=== PATIENT | female | born 1950 | race Caucasian/White ===

== ENCOUNTER 2016-11-23 10:48 | Day surgery (SDC) | payer MEDICARE, OTHER ==
[2016-11-19 15:59] VITALS: BMI 25.7
[~2016-11-23 10:48] MED LIST: LACTATED RINGERS 1,000 ML IV SCH
[2016-11-23] MEDS ORDERED: LIDOCAINE 1% 20 ML VIAL (10MG/ML) FOR IV START INTRADERMA ONE (10:58)
[2016-11-23 11:04] VITALS: RESP 16; TEMP 98.1
[2016-11-23] MEDS ORDERED: PROPOFOL 10 MG/ML 20 ML VIAL IV ONE (12:52)
[2016-11-23] MEDS ORDERED: LIDOCAINE 1% INJ 10MG/ML (20 ML MDV) ONE (12:52)
--- NOTE | 2016-11-23 13:25 | P.PCN ---
Date of Procedure: 11/23/16 Procedure(s) Performed: Procedure: Total colonoscopy. Preoperative diagnosis: Screening for neoplasia. Postoperative diagnosis: Sigmoid diverticulosis with no evidence of acute diverticulitis, strictures, polyps or cancer. Preparation: HalfLytely prep. Sedation: Was provided by anesthesia. Brief clinical history: The patient is a 66-year-old female who is scheduled for this evaluation for screening for neoplasia, age being her risk factor. She had a prior colonoscopy more than 10 years ago. She has no abdominal complaints, bleeding or anemia. Procedure: With the patient on her left lateral decubitus position and after informed consent and adequate sedation, the perianal area was inspected and it did not show any fissures or fistulas. There were no masses felt on digital rectal examination. The Olympus CFQ 160L video colonoscope was then inserted in the rectum in the usual fashion and advanced to the cecum. There were multiple diverticular orifices seen scattered in the sigmoid but there was no evidence of acute diverticulitis or strictures. No polyps or tumors were seen. I retroflexed the endoscope in the rectum before the endoscope was withdrawn. The patient tolerated the procedure well. Plan: The patient was reassured and I discussed with her as well. Discussed dietary measures. Consideration can be given for a repeat exam in 10 years depending on her overall health at that time. She will be discussing that with you and I will be happy to see her in the future.
[2016-11-23 13:46] VITALS: BP 127/61; PULSE 62
== END 2016-11-23 13:55 | disposition home or self-care (01) ==
LOC: ORWHC2ENDO 10:48
DX: Z12.11 Encounter for screening for malignant neoplasm of colon (principal); K57.30 Diverticulosis of large intestine without perforation or abscess without bleeding; I10 Essential (primary) hypertension; J45.909 Unspecified asthma, uncomplicated; F32.9 Major depressive disorder, single episode, unspecified; K21.9 Gastro-esophageal reflux disease without esophagitis; Z79.899 Other long term (current) drug therapy; Z88.5 Allergy status to narcotic agent; Z88.2 Allergy status to sulfonamides
CPT/HCPCS: J2001; J2704; G0121

== ENCOUNTER → 2016-11-25 | Outpatient (CLI) | payer MEDICARE, OTHER ==
--- NOTE | 2016-11-25 16:16 | BD ---
EXAMINATION TYPE: MG DEXA axial skeleton. DATE OF EXAM: 11/25/2016 COMPARISON: 2011 CLINICAL HISTORY: osteoporosis Height: 5'2 Weight: 150 FRAX RISK QUESTIONS: Alcohol (3 or more units per day): no Family History (Parent hip fracture): no Glucocorticoids (More than 3mos): no (Ex: prednisone, prednisolone, methylprednisolone, dexamethasone, and hydrocortisone). History of Fracture in Adulthood: yes Secondary Osteoporosis: 1. Type 1 Diabetes: no 2. Hyperthyroidism: no 3. Menopause before 45: yes 4. Malnutrition: no 5. Chronic liver disease: no Rheumatoid Arthritis: no Current Tobacco Use: no RISK FACTORS HISTORY OF: Postmenopausal woman: MEDICATIONS: Additional Medications: asthma, blood pressure, Additional History: EXAM MEASUREMENTS: Bone mineral densitometry was performed using the Mir [employer]en System. Bone mineral density as measured about the Lumbar spine is: ----- L1-L4(G/cm2): 1.247 T Score Values are as follows: ----- L2: -1.2 ----- L3: 2.0 ----- L4: 3.2 ----- L1-L4:0.6 Bone mineral density has: Decreased -16.1% since study of: 11/10/2011 Bone mineral density about the R hip (g/cm2): 0.869 Bone mineral density about the L hip (g/cm2): 0.903 T Score values are as follows: -----R Neck: -1.2 -----L Neck: -1.0 -----R Total: -0.6 -----L Total: -0.5 Bone mineral density has: Decreased -7.8% since study of: 11/09/2016 IMPRESSION: Osteopenia (T Score between -2.5 and -1) as noted by T score values:Rt hip There is slightly increased risk of fracture and the patient may be considered for treatment. Re-Screen 2-5 years. NOTE: T-SCORE=SD OF THE YOUNG ADULT MEAN.
--- NOTE | 2016-11-26 10:20 | MM ---
Reason for exam: screening (asymptomatic). Last mammogram was performed 1 year ago. History: Patient is postmenopausal. Family history of breast cancer in paternal grandmother and breast cancer in maternal aunt. Reductions of both breasts, May 2007. Benign stereotactic core biopsy of the left breast, June 08, 2002. Benign excisional biopsy of the left breast, 2002. Benign core biopsy of the left breast. Took estrogen for 12 years 2 months. Physical Findings: A clinical breast exam by your physician is recommended on an annual basis and results should be correlated with mammographic findings. MG Screening Mammo w CAD Bilateral CC and MLO view(s) were taken. Prior study comparison: November 20, 2015, bilateral MG screening mammo w CAD. November 21, 2014, bilateral MG screening mammo w CAD. November 15, 2013, bilateral MG screening mammo w CAD. There are scattered fibroglandular densities. Post mammoplasty changes on both sides. ASSESSMENT: Negative, BI-RAD 1 RECOMMENDATION: Routine screening mammogram of both breasts in 1 year.
== END | disposition home or self-care (01) ==
LOC: RADMAMWWP 14:12
PROVIDERS: ATTEND Family Medicine
DX: Z12.31 Encounter for screening mammogram for malignant neoplasm of breast (principal); M85.851 Other specified disorders of bone density and structure, right thigh
CPT/HCPCS: 77080; G0202

== ENCOUNTER → 2017-11-26 | Outpatient (CLI) | payer MEDICARE, OTHER ==
--- NOTE | 2017-11-29 10:17 | MM ---
Reason for exam: screening (asymptomatic). Last mammogram was performed 1 year ago. History: Patient is postmenopausal. Family history of breast cancer in paternal grandmother and breast cancer in maternal aunt. Reductions of both breasts, May 2007. Benign stereotactic core biopsy of the left breast, June 08, 2002. Benign excisional biopsy of the left breast, 2002. Benign core biopsy of the left breast. Took estrogen for 12 years 2 months. Physical Findings: A clinical breast exam by your physician is recommended on an annual basis and results should be correlated with mammographic findings. MG 3D Screening Mammo W/Cad Bilateral CC and MLO view(s) were taken. Prior study comparison: November 25, 2016, bilateral MG screening mammo w CAD. November 20, 2015, bilateral MG screening mammo w CAD. There are scattered fibroglandular densities. Previous mammotome biopsy in the left breast. No significant changes when compared with prior studies. ASSESSMENT: Benign, BI-RAD 2 RECOMMENDATION: Routine screening mammogram of both breasts in 1 year.
== END | disposition home or self-care (01) ==
LOC: RADMAMWWP 09:55
PROVIDERS: ATTEND Family Medicine
DX: Z12.31 Encounter for screening mammogram for malignant neoplasm of breast (principal)
CPT/HCPCS: 77063; 77067

== ENCOUNTER → 2018-03-18 | Outpatient (CLI) | payer MEDICARE, OTHER ==
[2018-03-18 22:34] LABS: Vitamin D 25 Hydroxy 66.6 ng/mL (30.0-100.0)
[2018-03-18 22:44] LABS: T4, Free (Free Thyroxine) 1.5 ng/dL (0.80-1.80)
== END ==
LOC: LABWHC1 15:24
PROVIDERS: ATTEND Psychiatry & Neurology Neurology
DX: E03.9 Hypothyroidism, unspecified (principal); E55.9 Vitamin D deficiency, unspecified; E53.0 Riboflavin deficiency; R53.83 Other fatigue
CPT/HCPCS: 36415; 82306; 82607; 84439; 84443

== ENCOUNTER 2019-11-01 10:46 | Observation (INO) | payer MEDICARE, OTHER ==
[2019-11-01 11:35] LABS: Basophils # (A) 0.1 k/uL (0-0.2); Basophils % (A) 1 %; Eosinophils # (A) 0.2 k/uL (0-0.7); Eosinophils % (A) 2 %; HCT 44.1 % (34.0-46.0); HGB 14.2 gm/dL (11.4-16.0); Lymphocytes # (A) 1.2 k/uL (1.0-4.8); Lymphocytes % (A) 19 %; MCH 28.8 pg (25.0-35.0); MCHC 32.3 g/dL (31.0-37.0); MCV 89.3 fL (80.0-100.0); Mean Platelet Volume 6.9; Monocytes # (A) 0.4 k/uL (0-1.0); Monocytes % (A) 6 %; Neutrophils # (A) 4.5 k/uL (1.3-7.7); Neutrophils % (A) 70 %; Platelet Count 244 k/uL (150-450); RBC 4.94 m/uL (3.80-5.40); RDW 13.2 % (11.5-15.5); WBC 6.4 k/uL (3.8-10.6)
--- NOTE | 2019-11-01 11:36 | XR ---
EXAMINATION TYPE: XR chest 2V DATE OF EXAM: 11/01/2019 COMPARISON: 06/24/2017 TECHNIQUE: PA and lateral views submitted. HISTORY: Shortness of breath FINDINGS: The lungs are clear and there is no pneumothorax, pleural effusion, or focal pneumonia. No overt fa ilure. 2 mm nodule right upper lobe too small to characterize. Arthropathy of the shoulders. Heart si ze normal. Degenerative change of the spine. IMPRESSION: 1. No acute process.
[2019-11-01 11:51] LABS: ALT 11 U/L (4-34); AST 24 U/L (14-36); African American GFR (CKD) >90 (>60 ml/min/1.73 sqM); Alkaline Phosphatase 100 U/L (38-126); Anion Gap 7 mmol/L; Blood Urea Nitrogen 9 mg/dL (7-17); Calcium 9.8 mg/dL (8.4-10.2); Carbon Dioxide 25 mmol/L (22-30); Chloride 103 mmol/L (98-107); D-Dimer 0.4 mg/L FEU (<0.60); Glucose 97 mg/dL (74-99); INR 0.9 (<1.2); Magnesium 2.1 mg/dL (1.6-2.3); Non-African American GFR(CKD) 80 (>60 ml/min/1.73 sqM); Partial Thromboplastin Time 23.6 sec (22.0-30.0); Potassium 4.2 mmol/L (3.5-5.1); Prothrombin Time 9.7 sec (9.0-12.0); Sodium 135 mmol/L (137-145); Total Bilirubin 0.6 mg/dL (0.2-1.3); Total Protein 6.5 g/dL (6.3-8.2)
--- NOTE | 2019-11-01 12:06 | ED ---
General Adult HPI - General Chief complaint: Shortness of Breath Stated complaint: LUIS Time Seen by Provider: 11/01/19 10:56 Source: patient, RN notes reviewed Mode of arrival: ambulatory Limitations: no limitations - History of Present Illness Initial comments: 68-year-old female presents emergency from chief complaint chest pain or shortness of breath. Patient had increased symptoms the last couple days with today's a worse. Patient states that she does have history of asthma does see Dr. Dudley. Patient states that the pain is not exacerbated with movement. Patient states she does have increased shortness breath with exertion. Patient states that she has no prior cardiac disease. She is to have a history of hypertension but states that she lost weight and states that she was off medication. Patient states she has no leg swelling, leg pain no history of PE or DVT. - Related Data Home Medications Medication Instructions Recorded Confirmed Escitalopram [Lexapro] 20 mg PO DAILY 08/18/13 11/23/16 Ibuprofen [Motrin] 600 mg PO DAILY 08/18/13 11/23/16 Valsartan/Hydrochlorothiazide 1 each PO DAILY 08/18/13 11/23/16 [Diovan Hct 80-12.5 mg Tablet] Cholecalciferol (Vitamin D3) 2,000 unit PO DAILY 11/19/16 11/23/16 [Vitamin D3] Fluticasone/Salmeterol [Advair 1 inhalation PO BID 11/19/16 11/23/16 500-50 Diskus] Glucosam/Miguel-Msm1/C/Wilver/Bosw 1 each PO DAILY 11/19/16 11/23/16 [Glucosamine-Chondroitin Tablet] Losartan-Hctz 50-12.5 mg [Hyzaar 1 each PO DAILY 11/19/16 11/23/16 50-12.5] Montelukast [Singulair] 10 mg PO DAILY 11/19/16 11/23/16 Multivitamins, Thera [Multivitamin 1 tab PO DAILY 11/19/16 11/23/16 (formulary)] Pantoprazole [Protonix] 0 mg PO DAILY 11/19/16 11/23/16 Vitamin B Complex 1 each PO DAILY 11/19/16 11/23/16 Allergies Allergy/AdvReac Type Severity Reaction Status Date / Time acetaminophen [From Vicodin] AdvReac Nausea & Verified 11/23/16 10:55 Vomiting hydrocodone [From Vicodin] AdvReac Nausea & Verified 11/23/16 10:55 Vomiting hydromorphone [From Dilaudid] AdvReac Nausea & Verified 11/23/16 10:55 Vomiting meperidine [From Demerol] AdvReac Nausea & Verified 11/23/16 10:55 Vomiting morphine AdvReac Nausea & Verified 11/23/16 10:55 Vomiting oxycodone AdvReac Nausea & Verified 11/23/16 10:55 Vomiting Sulfa (Sulfonamide AdvReac Nausea & Verified 11/23/16 10:55 Antibiotics) Vomiting Review of Systems ROS Statement: Those systems with pertinent positive or pertinent negative responses have been documented in the HPI. ROS Other: All systems not noted in ROS Statement are negative. Past Medical History Past Medical History: Asthma, GERD/Reflux, Hypertension Additional Past Medical History / Comment(s): hx of migraines; History of Any Multi-Drug Resistant Organisms: None Reported Past Surgical History: Appendectomy, Breast Surgery, Cholecystectomy, Hysterectomy, Joint Replacement Additional Past Surgical History / Comment(s): bowen knee replacments, polyps removed from esophagus, bowen breast reduction; colonoscopy Past Anesthesia/Blood Transfusion Reactions: Motion Sickness Additional Past Anesthesia/Blood Transfusion Reaction / Comment(s): pt states had diff "catching my breath" during procedure when tube passed down esophagus Smoking Status: Never smoker Past Alcohol Use History: None Reported Past Drug Use History: None Reported - Past Family History Mother Family Medical History: No Reported History General Exam Limitations: no limitations General appearance: alert, in no apparent distress Head exam: Present: atraumatic, normocephalic, normal inspection Neck exam: Present: normal inspection, full ROM. Absent: tenderness, meningismus, lymphadenopathy Respiratory exam: Present: normal lung sounds bilaterally. Absent: respiratory distress, wheezes, rales, rhonchi, stridor Cardiovascular Exam: Present: regular rate, normal rhythm, normal heart sounds. Absent: systolic murmur, diastolic murmur, rubs, gallop, clicks GI/Abdominal exam: Present: soft, normal bowel sounds. Absent: distended, tenderness, guarding, rebound, rigid Back exam: Absent: CVA tenderness (R), CVA tenderness (L) Neurological exam: Present: alert, oriented X3 Skin exam: Present: warm, dry, intact, normal color. Absent: rash Course Vital Signs 11/01/19 11/01/19 10:52 12:23 Temperature 98.5 F Pulse Rate 73 68 Respiratory 18 18 Rate Blood Pressure 145/81 134/63 O2 Sat by Pulse 99 100 Oximetry EKG Findings - EKG Comments: EKG Findings:: EKG performed at 11:04 normal sinus rhythm rate of 67 AR 180 QRS 96 QTC is QTC 410/433 Medical Decision Making - Medical Decision Making 68-year-old female sent for chest pain shortness breath EKG, chest x-ray, d- dimer and troponin are negative this time. Patient we admitted for cardiac rule out. - Lab Data Result diagrams: 11/01/19 11:15 11/01/19 11:15 Lab Results 11/01/19 11/01/19 11/01/19 Range/Units 11:15 11:15 11:15 WBC 6.4 (3.8-10.6) k/uL RBC 4.94 (3.80-5.40) m/uL Hgb 14.2 (11.4-16.0) gm/dL Hct 44.1 (34.0-46.0) % MCV 89.3 (80.0-100.0) fL MCH 28.8 (25.0-35.0) pg MCHC 32.3 (31.0-37.0) g/dL RDW 13.2 (11.5-15.5) % Plt Count 244 (150-450) k/uL Neutrophils % 70 % Lymphocytes % 19 % Monocytes % 6 % Eosinophils % 2 % Basophils % 1 % Neutrophils # 4.5 (1.3-7.7) k/uL Lymphocytes # 1.2 (1.0-4.8) k/uL Monocytes # 0.4 (0-1.0) k/uL Eosinophils # 0.2 (0-0.7) k/uL Basophils # 0.1 (0-0.2) k/uL PT 9.7 (9.0-12.0) sec INR 0.9 (<1.2) APTT 23.6 (22.0-30.0) sec D-Dimer 0.40 (<0.60) mg/L FEU Sodium 135 L (137-145) mmol/L Potassium 4.2 (3.5-5.1) mmol/L Chloride 103 (98-107) mmol/L Carbon Dioxide 25 (22-30) mmol/L Anion Gap 7 mmol/L BUN 9 (7-17) mg/dL Creatinine 0.76 (0.52-1.04) mg/dL Est GFR (CKD-EPI)AfAm >90 (>60 ml/min/1.73 sqM) Est GFR (CKD-EPI)NonAf 80 (>60 ml/min/1.73 sqM) Glucose 97 (74-99) mg/dL Plasma Lactic Acid Marcos (0.7-2.0) mmol/L Calcium 9.8 (8.4-10.2) mg/dL Magnesium 2.1 (1.6-2.3) mg/dL Total Bilirubin 0.6 (0.2-1.3) mg/dL AST 24 (14-36) U/L ALT 11 (4-34) U/L Alkaline Phosphatase 100 (38-126) U/L Troponin I (0.000-0.034) ng/mL NT-Pro-B Natriuret Pep pg/mL Total Protein 6.5 (6.3-8.2) g/dL Albumin 4.0 (3.5-5.0) g/dL 11/01/19 11/01/19 11/01/19 Range/Units 11:15 11:15 11:37 WBC (3.8-10.6) k/uL RBC (3.80-5.40) m/uL Hgb (11.4-16.0) gm/dL Hct (34.0-46.0) % MCV (80.0-100.0) fL MCH (25.0-35.0) pg MCHC (31.0-37.0) g/dL RDW (11.5-15.5) % Plt Count (150-450) k/uL Neutrophils % % Lymphocytes % % Monocytes % % Eosinophils % % Basophils % % Neutrophils # (1.3-7.7) k/uL Lymphocytes # (1.0-4.8) k/uL Monocytes # (0-1.0) k/uL Eosinophils # (0-0.7) k/uL Basophils # (0-0.2) k/uL PT (9.0-12.0) sec INR (<1.2) APTT (22.0-30.0) sec D-Dimer (<0.60) mg/L FEU Sodium (137-145) mmol/L Potassium (3.5-5.1) mmol/L Chloride (98-107) mmol/L Carbon Dioxide (22-30) mmol/L Anion Gap mmol/L BUN (7-17) mg/dL Creatinine (0.52-1.04) mg/dL Est GFR (CKD-EPI)AfAm (>60 ml/min/1.73 sqM) Est GFR (CKD-EPI)NonAf (>60 ml/min/1.73 sqM) Glucose (74-99) mg/dL Plasma Lactic Acid Marcos 1.5 (0.7-2.0) mmol/L Calcium (8.4-10.2) mg/dL Magnesium (1.6-2.3) mg/dL Total Bilirubin (0.2-1.3) mg/dL AST (14-36) U/L ALT (4-34) U/L Alkaline Phosphatase (38-126) U/L Troponin I <0.012 (0.000-0.034) ng/mL NT-Pro-B Natriuret Pep 163 pg/mL Total Protein (6.3-8.2) g/dL Albumin (3.5-5.0) g/dL Disposition Clinical Impression: Chest pain, Dyspnea Disposition: ADMITTED IP TO THIS HOSP Condition: Fair Referrals: Kristina Zapata MD [Primary Care Provider] - 1-2 days
[2019-11-01] MEDS ORDERED: HEPARIN SODIUM,PORCINE 5,000 UNIT/ML 1 ML VIAL IV ONE (12:32)
[2019-11-01] MEDS ORDERED: NITROGLYCERIN SL TABS 0.4 MG TAB SUBLINGUAL PRN (12:32)
[2019-11-01] MEDS ORDERED: HEPARIN SODIUM,PORCINE 5,000 UNIT/ML 1 ML VIAL IV PRN (12:32)
[2019-11-01] MEDS ORDERED: ASPIRIN 81 MG PO STA (12:32)
[2019-11-01] MEDS ORDERED: HEPARIN SOD,PORK IN 0.45% NACL 25,000 UNIT in 0.45% NACL 1 250ML.BAG IV SCH (12:45)
[2019-11-01] MEDS ORDERED: ALBUTEROL NEBULIZED (CONC) 5 MG, SODIUM CHLORIDE 0.9% NEBULIZ 3 ML INHALATION PRN ×2 (14:30)
[2019-11-01] MEDS ORDERED: MELATONIN PO PRN (15:31)
--- NOTE | 2019-11-01 15:36 | P.HPIM ---
History of Present Illness Patient given with complaints of her shortness of breath patient does have history of asthma and she believes that she may have asthma exacerbation patient has is having shortness of breath going on for about a week and getting worse progressively. On exam patient doesn't have any wheeze. Patient is also complaining of epigastric abdominal discomfort which is burning sensation did have an episode of nausea vomiting patient denied any lightheadedness denied any dysuria patient denied any palpitations or diaphoresis or this epigastric pain patient is admitted for rule out acute coronary syndromes. EKG did not show any acute ST-T wave changes. Patient was also having dry cough. Review of Systems REVIEW OF SYSTEMS: CONSTITUTIONAL: No fever, no malaise, no fatigue. HEENT: No recent visual problems or hearing problems. Denied any sore throat. CARDIOVASCULAR: No chest pain, orthopnea, PND, no palpitations, no syncope. PULMONARY: no hemoptysis. GASTROINTESTINAL: No diarrhea, no nausea, no vomiting, no abdominal pain. NEUROLOGICAL: No headaches, no weakness, no numbness. HEMATOLOGICAL: Denies any bleeding or petechiae. GENITOURINARY: Denies any burning micturition, frequency, or urgency. MUSCULOSKELETAL/RHEUMATOLOGICAL: Denies any joint pain, swelling, or any muscle pain. ENDOCRINE: Denies any polyuria or polydipsia. The rest of the 14-point review of systems is negative. Past Medical History Past Medical History: Asthma, Chest Pain / Angina, GERD/Reflux, Hypertension Additional Past Medical History / Comment(s): hx of migraines; History of Any Multi-Drug Resistant Organisms: None Reported Past Surgical History: Appendectomy, Breast Surgery, Cholecystectomy, Hysterectomy, Joint Replacement Additional Past Surgical History / Comment(s): bowen knee replacments, polyps removed from esophagus, bowen breast reduction; colonoscopy. esophagus repair Past Anesthesia/Blood Transfusion Reactions: Motion Sickness Additional Past Anesthesia/Blood Transfusion Reaction / Comment(s): pt states had diff "catching my breath" during procedure when tube passed down esophagus Additional Psychological History / Comment(s): mild memory loss, dementia, alzheimers. Smoking Status: Never smoker Past Alcohol Use History: None Reported Additional Past Alcohol Use History / Comment(s): smoked socially off and on; quit 25 years ago Past Drug Use History: None Reported - Past Family History Mother Family Medical History: No Reported History Medications and Allergies Home Medications Medication Instructions Recorded Confirmed Type Fluticasone/Salmeterol [Advair 1 puff INHALATION RT-BID PRN 11/19/16 11/01/19 History 500-50 Diskus] Ascorbic Acid [Vitamin C] 500 mg PO TID 11/01/19 11/01/19 History Citalopram Hydrobromide 10 mg PO HS 11/01/19 11/01/19 History [Citalopram HBr] Donepezil HCl [Aricept] 10 mg PO HS 11/01/19 11/01/19 History Fexofenadine HCl [Shoshana Allergy] 180 mg PO DAILY 11/01/19 11/01/19 History Gabapentin [Neurontin] 100 mg PO TID 11/01/19 11/01/19 History Ginkgo Biloba Vanlue Extract [Ginkgo] 120 mg PO BID 11/01/19 11/01/19 History L.acidoph,Paracasei, B.lactis 1 cap PO DAILY 11/01/19 11/01/19 History [Probiotic] Magnesium Oxide [Mag-Ox] 400 mg PO HS 11/01/19 11/01/19 History Melatonin (Unknown Dose) 1 tab PO HS 11/01/19 11/01/19 History Memantine HCl 10 mg PO BID 11/01/19 11/01/19 History Prevagen 1 tab PO HS 11/01/19 11/01/19 History Valsartan [Diovan] 80 mg PO DAILY 11/01/19 11/01/19 History miSOPROStoL [Cytotec] 100 mcg PO BID 11/01/19 11/01/19 History Allergies Allergy/AdvReac Type Severity Reaction Status Date / Time acetaminophen [From Vicodin] AdvReac Nausea & Verified 11/01/19 12:57 Vomiting hydrocodone [From Vicodin] AdvReac Nausea & Verified 11/01/19 12:57 Vomiting hydromorphone [From Dilaudid] AdvReac Nausea & Verified 11/01/19 12:57 Vomiting meperidine [From Demerol] AdvReac Nausea & Verified 11/01/19 12:57 Vomiting morphine AdvReac Nausea & Verified 11/01/19 12:57 Vomiting oxycodone AdvReac Nausea & Verified 11/01/19 12:57 Vomiting Sulfa (Sulfonamide AdvReac Nausea & Verified 11/01/19 12:57 Antibiotics) Vomiting Physical Exam Vitals: Vital Signs Temp Pulse Pulse Resp BP BP Pulse Ox 11/01/19 13:56 97.9 F 74 16 136/77 99 11/01/19 12:23 68 18 134/63 100 11/01/19 10:52 98.5 F 73 18 145/81 99 Intake and Output 11/01/19 11/01/19 11/01/19 06:59 14:59 22:59 Intake Total 114 Balance 114 Intake: IV 14 Heparin Sod,Pork in 0.45% 14 NaCl 25,000 unit In 0.45 % NaCl 1 250ml.bag @ 12 UNITS/KG/HR 7.762 mls/hr IV .Q24H [facility] Rx#: [id number] Oral 100 Other: Weight 64.682 kg PHYSICAL EXAMINATION: GENERAL: The patient is alert and oriented x3, not in any acute distress. Well developed, well nourished. HEENT: Pupils are round and equally reacting to light. EOMI. No scleral icterus. No conjunctival pallor. Normocephalic, atraumatic. No pharyngeal erythema. No thyromegaly. CARDIOVASCULAR: S1 and S2 present. No murmurs, rubs, or gallops. PULMONARY: Chest is clear to auscultation, no wheezing or crackles. ABDOMEN: Soft, nontender, nondistended, normoactive bowel sounds. No palpable organomegaly. MUSCULOSKELETAL: No joint swelling or deformity. EXTREMITIES: No cyanosis, clubbing, or pedal edema. NEUROLOGICAL: Gross neurological examination did not reveal any focal deficits. SKIN: No rashes. Results CBC & Chem 7: 11/01/19 11:15 11/01/19 11:15 Labs: Abnormal Lab Results - Last 24 Hours (Table) 11/01/19 Range/Units 11:15 Sodium 135 L (137-145) mmol/L Thrombosis Risk Factor Assmnt - Choose All That Apply Any of the Below Risk Factors Present?: No Other Risk Factors: Yes (chest pain) Each Risk Factor Represents 2 Points: Age 61-74 years Other congenital or acquired thrombophilia - If yes, enter type in comment: No Thrombosis Risk Factor Assessment Total Risk Factor Score: 2 Thrombosis Risk Factor Assessment Level: Low Risk Assessment and Plan Plan: -Chest pain patient pain is mostly in the epigastric area possibly peptic ulcer disease or gastritis patient will be started on Protonix rule out a concurrent syndromes cardiology will evaluate the patient further management as per them -Shortness of breath patient may have mild asthma exacerbation will not require any systemic steroids patient will be started on inhaled steroids. -Hypertension -Mild dementia for which patient is on memantine and Aricept which will be continued
[2019-11-01] MEDS: PANTOPRAZOLE 40 MG/10 ML VIAL IVP SCH (16:02)
[2019-11-01] MEDS: GABAPENTIN 100 MG CAP PO SCH ×2 (16:02→20:33)
[2019-11-01] MEDS: SYMBICORT 160-4.5 MCG INHALER INHALATION SCH (19:27)
[2019-11-01] MEDS ORDERED: BUDESONIDE 0.5 MG/2 ML NEBU INHALATION SCH (20:00)
[2019-11-01] MEDS: miSOPROStoL 100 MCG TAB PO SCH (20:33)
[2019-11-01] MEDS: MEMANTINE 10 MG TAB PO SCH (20:33)
[2019-11-01] MEDS ORDERED: CITALOPRAM HYDROBROMIDE 10 MG TAB PO SCH (21:00)
[2019-11-01] MEDS ORDERED: DONEPEZIL 10 MG TAB PO SCH (21:00)
[2019-11-01] MEDS ORDERED: MAGNESIUM OXIDE 400 MG TAB PO SCH (21:00)
[2019-11-01] MEDS ORDERED: NON FORMULARY DRUG (Prevagen 1 TAB) PO SCH (21:00)
[2019-11-01] MEDS ORDERED: QUEtiapine 25 MG TAB PO SCH (23:15)
[2019-11-02 02:14] VITALS: RESP 16
[2019-11-02 02:46] LABS: Mean Platelet Volume 7.3; Platelet Count 181 k/uL (150-450)
[2019-11-02 03:03] LABS: Cholesterol 154 mg/dL (<200); Triglycerides 97 mg/dL (<150)
[2019-11-02 05:54] LABS: HDL Cholesterol 70 mg/dL (40-60); LDL Cholesterol,Calculated 65 mg/dL (0-99)
[2019-11-02] MEDS: SYMBICORT 160-4.5 MCG INHALER INHALATION SCH (07:51)
[2019-11-02 08:24] VITALS: BP 157/80; PULSE 76; TEMP 98.1
[2019-11-02] MEDS: MEMANTINE 10 MG TAB PO SCH (08:54)
[2019-11-02] MEDS: GABAPENTIN 100 MG CAP PO SCH (08:54)
[2019-11-02] MEDS: PANTOPRAZOLE 40 MG/10 ML VIAL IVP SCH (08:55)
[2019-11-02] MEDS: miSOPROStoL 100 MCG TAB PO SCH (08:57)
[2019-11-02] MEDS ORDERED: VALSARTAN 80 MG TAB PO SCH (09:00)
[2019-11-02] MEDS ORDERED: LORATADINE 10 MG TAB PO SCH (09:00)
[2019-11-02] MEDS ORDERED: ASPIRIN 325 MG TAB PO SCH (09:00)
--- NOTE | 2019-11-02 10:13 | P.CRDCN ---
History of Present Illness History of present illness: HISTORY OF PRESENTING ILLNESS This is a pleasant 68-year-old occasion female past medical history significant for asthma, hypertension, gastroesophageal reflux disease and Alzheimer's. 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 The patient is confused at baseline and is unsure why she is in the hospital. She is unsure of the day. She is very confused as to the circumstances surrounding yesterday. Information is obtained from the medical records and her . According to her he brought her to the emergency department yesterday with symptoms of shortness of breath. She had been complaining of feeling short of breath for the previous 1-week that seemed like her asthma, however it was getting progressively worse. She did not have chest pain according tot he patient and her . She states she has been struggling with diarrhea. DIAGNOSTICS EKG reveals sinus mechanism with left axis deviation and poor R-wave progression. Chest xray negative for an acute cardiopulmonary process. Laboratory reviewed, CBC unremarkable, cardiac enzymes negative x3, LDL 65, HDL 70, d-dimer 0.4, sodium 135, potassium 4.2, creatinine 0.76 and magnesium 2.1. Current cardiac medications include valsartan 80 mg daily. REVIEW OF SYSTEMS At the time of my exam: CONSTITUTIONAL: Denies fever or chills. CARDIOVASCULAR: Denies chest pain, shortness of breath, orthopnea, PND or palpitations. RESPIRATORY: Denies cough. GASTROINTESTINAL: Denies abdominal pain, diarrhea, constipation, nausea or vomiting. MUSCULOSKELETAL: Denies myalgias. NEUROLOGIC: Denies numbness, tingling or weakness. ENDOCRINE: Denies fatigue, weight change, polydipsia or polyurina. GENITOURINARY: Denies burning, hematuria or urgency with micturation. HEMATOLOGIC: Denies history of anemia or bleeding. PHYSICAL EXAMINATION Blood pressure 157/80 heart rate 76 afebrile and maintaining oxygen saturation on room air. CONSTITUTIONAL: No apparent distress. HEENT: Head is normocephalic. Pupils are equal, round. Sclerae anicteric. Mucous membranes of the mouth are moist. No JVD. No carotid bruit. CHEST EXAMINATION: Lungs are clear to auscultation. No chest wall tenderness is noted on palpation or with deep breathing. HEART EXAMINATION: Regular rate and rhythm. S1, S2 heard. No murmurs, gallops or rub. ABDOMEN: Soft, nontender. Positive bowel sounds. EXTREMITIES: 2+ peripheral pulses, no lower extremity edema and no calf tenderness. NEUROLOGIC EXAMINATION: Patient is awake, alert. ASSESSMENT Shortness of breath, and acute coronary event has been ruled out. Hypertension Asthma Altered mental status with history of Alzheimer's disease PLAN An acute coronary event has been ruled out. Clinically she is euvolemic and not in heart failure or fluid overload. Discontinue heparin infusion. Echocardiogram has been obtained and will be reviewed. Recommend increasing activity and ambulation and assess for exertional chest pain or shortness of breath. Further recommendations to follow based on clinical course. Thank you kindly for this consultation. Nurse Practitioner note has been reviewed, I agree with a documented findings and plan of care. Patient was seen and examined. Past Medical History Past Medical History: Asthma, Chest Pain / Angina, GERD/Reflux, Hypertension Additional Past Medical History / Comment(s): hx of migraines; History of Any Multi-Drug Resistant Organisms: None Reported Past Surgical History: Appendectomy, Breast Surgery, Cholecystectomy, Hysterectomy, Joint Replacement Additional Past Surgical History / Comment(s): bowen knee replacments, polyps removed from esophagus, bowen breast reduction; colonoscopy. esophagus repair Past Anesthesia/Blood Transfusion Reactions: Motion Sickness Additional Past Anesthesia/Blood Transfusion Reaction / Comment(s): pt states had diff "catching my breath" during procedure when tube passed down esophagus Additional Psychological History / Comment(s): mild memory loss, dementia, alzheimers. Smoking Status: Never smoker Past Alcohol Use History: None Reported Additional Past Alcohol Use History / Comment(s): smoked socially off and on; quit 25 years ago Past Drug Use History: None Reported - Past Family History Mother Family Medical History: No Reported History Medications and Allergies Home Medications Medication Instructions Recorded Confirmed Type Fluticasone/Salmeterol [Advair 1 puff INHALATION RT-BID PRN 11/19/16 11/01/19 History 500-50 Diskus] Ascorbic Acid [Vitamin C] 500 mg PO TID 11/01/19 11/01/19 History Citalopram Hydrobromide 10 mg PO HS 11/01/19 11/01/19 History [Citalopram HBr] Donepezil HCl [Aricept] 10 mg PO HS 11/01/19 11/01/19 History Fexofenadine HCl [Shoshana Allergy] 180 mg PO DAILY 11/01/19 11/01/19 History Gabapentin [Neurontin] 100 mg PO TID 11/01/19 11/01/19 History Ginkgo Biloba [place] Extract [Ginkgo] 120 mg PO BID 11/01/19 11/01/19 History L.acidoph,Paracasei, B.lactis 1 cap PO DAILY 11/01/19 11/01/19 History [Probiotic] Magnesium Oxide [Mag-Ox] 400 mg PO HS 11/01/19 11/01/19 History Melatonin (Unknown Dose) 1 tab PO HS 11/01/19 11/01/19 History Memantine HCl 10 mg PO BID 11/01/19 11/01/19 History Prevagen 1 tab PO HS 11/01/19 11/01/19 History Valsartan [Diovan] 80 mg PO DAILY 11/01/19 11/01/19 History miSOPROStoL [Cytotec] 100 mcg PO BID 11/01/19 11/01/19 History Allergies Allergy/AdvReac Type Severity Reaction Status Date / Time acetaminophen [From Vicodin] AdvReac Nausea & Verified 11/01/19 12:57 Vomiting hydrocodone [From Vicodin] AdvReac Nausea & Verified 11/01/19 12:57 Vomiting hydromorphone [From Dilaudid] AdvReac Nausea & Verified 11/01/19 12:57 Vomiting meperidine [From Demerol] AdvReac Nausea & Verified 11/01/19 12:57 Vomiting morphine AdvReac Nausea & Verified 11/01/19 12:57 Vomiting oxycodone AdvReac Nausea & Verified 11/01/19 12:57 Vomiting Sulfa (Sulfonamide AdvReac Nausea & Verified 11/01/19 12:57 Antibiotics) Vomiting Physical Exam Vitals: Vital Signs Temp Pulse Pulse Resp BP BP Pulse Ox 11/02/19 08:22 98.1 F 76 16 157/80 97 11/02/19 02:11 98.0 F 59 L 16 161/73 97 11/01/19 21:00 98.0 F 68 17 139/71 98 11/01/19 15:55 98.2 F 72 20 145/61 96 11/01/19 14:00 20 11/01/19 13:56 97.9 F 74 16 136/77 99 11/01/19 12:23 68 18 134/63 100 11/01/19 10:52 98.5 F 73 18 145/81 99 Intake and Output 11/01/19 11/02/19 11/02/19 22:59 06:59 14:59 Intake Total 413.897 61.123 Balance 413.897 61.123 Intake: IV 14 Heparin Sod,Pork in 0.45% 14 NaCl 25,000 unit In 0.45 % NaCl 1 250ml.bag @ 12 UNITS/KG/HR 7.762 mls/hr IV .Q24H [facility] Rx#: [id number] Intake, IV Titration 59.897 61.123 Amount Heparin Sod,Pork in 0.45% 59.897 61.123 NaCl 25,000 unit In 0.45 % NaCl 1 250ml.bag @ 12 UNITS/KG/HR 7.762 mls/hr IV .Q24H [facility] Rx#: [id number] Oral 340 Other: Voiding Method Toilet Toilet Toilet # Voids 1 1 Results 11/02/19 02:28 11/01/19 11:15 Cardiac Enzymes 11/01/19 11/01/19 11/01/19 Range/Units 11:15 11:15 14:36 AST 24 (14-36) U/L Troponin I <0.012 <0.012 (0.000-0.034) ng/mL 11/01/19 Range/Units 17:31 AST (14-36) U/L Troponin I <0.012 (0.000-0.034) ng/mL Coagulation 11/01/19 11/01/19 11/02/19 Range/Units 11:15 18:48 02:28 PT 9.7 (9.0-12.0) sec APTT 23.6 77.6 H 46.1 H (22.0-30.0) sec Lipids 11/02/19 Range/Units 02:28 Triglycerides 97 (<150) mg/dL Cholesterol 154 (<200) mg/dL HDL Cholesterol 70 H (40-60) mg/dL CBC 11/01/19 11/02/19 Range/Units 11:15 02:28 WBC 6.4 (3.8-10.6) k/uL RBC 4.94 (3.80-5.40) m/uL Hgb 14.2 (11.4-16.0) gm/dL Hct 44.1 (34.0-46.0) % Plt Count 244 181 (150-450) k/uL Comprehensive Metabolic Panel 11/01/19 Range/Units 11:15 Sodium 135 L (137-145) mmol/L Potassium 4.2 (3.5-5.1) mmol/L Chloride 103 (98-107) mmol/L Carbon Dioxide 25 (22-30) mmol/L BUN 9 (7-17) mg/dL Creatinine 0.76 (0.52-1.04) mg/dL Glucose 97 (74-99) mg/dL Calcium 9.8 (8.4-10.2) mg/dL AST 24 (14-36) U/L ALT 11 (4-34) U/L Alkaline Phosphatase 100 (38-126) U/L Total Protein 6.5 (6.3-8.2) g/dL Albumin 4.0 (3.5-5.0) g/dL Current Medications Generic Name Dose Route Start Last Admin Trade Name Freq PRN Reason Stop Dose Admin Aspirin 325 mg 11/02/19 09:00 11/02/19 08:54 Aspirin PO 325 mg DAILY [facility] Administration Budesonide/Formoterol Fumarate 2 puff 11/01/19 20:00 11/02/19 07:51 Symbicort 160-4.5 Mcg Inhaler INHALATION 2 puff RT-BID [facility] Administration Citalopram Hydrobromide 10 mg 11/01/19 21:00 11/01/19 20:32 Celexa PO 10 mg HS [facility] Administration Albuterol Sulfate 5 mg/ Sodium 0 mg 11/01/19 14:30 Chloride 3 ml INHALATION RT-QID PRN Shortness Of Breath Or Wheezing Donepezil HCl 10 mg 11/01/19 21:00 11/01/19 20:33 Aricept PO 10 mg HS [facility] Administration Gabapentin 100 mg 11/01/19 16:00 11/02/19 08:54 Neurontin PO 100 mg TID [facility] Administration Heparin Sodium (Porcine) 0 unit 11/01/19 12:32 Heparin IV Q6HR PRN Low PTT Protocol Loratadine 10 mg 11/02/19 09:00 11/02/19 08:54 Claritin PO 10 mg DAILY [facility] Administration Magnesium Oxide 400 mg 11/01/19 21:00 11/01/19 20:33 Mag-Ox PO 400 mg HS [facility] Administration Memantine 10 mg 11/01/19 21:00 11/02/19 08:54 Namenda PO 10 mg BID [facility] Administration Misoprostol 100 mcg 11/01/19 21:00 11/02/19 08:57 Cytotec PO 100 mcg BID [facility] Administration Nitroglycerin 0.4 mg 11/01/19 12:32 Nitrostat SUBLINGUAL Q5M PRN Chest Pain Non-Formulary Medication 1 tab 11/01/19 21:00 11/01/19 20:33 Prevagen PO Not Given HS [facility] Pantoprazole Sodium 40 mg 11/01/19 14:45 11/02/19 08:55 Protonix IVP 40 mg DAILY [facility] Administration Quetiapine Fumarate 25 mg 11/01/19 23:15 11/01/19 23:20 Seroquel PO 25 mg HS [facility] Administration Valsartan 80 mg 11/02/19 09:00 11/02/19 08:54 Diovan PO 80 mg DAILY [facility] Administration Intake and Output 11/01/19 11/02/19 11/02/19 22:59 06:59 14:59 Intake Total 413.897 61.123 Balance 413.897 61.123 Intake: IV 14 Heparin Sod,Pork in 0.45% 14 NaCl 25,000 unit In 0.45 % NaCl 1 250ml.bag @ 12 UNITS/KG/HR 7.762 mls/hr IV .Q24H [facility] Rx#: [id number] Intake, IV Titration 59.897 61.123 Amount Heparin Sod,Pork in 0.45% 59.897 61.123 NaCl 25,000 unit In 0.45 % NaCl 1 250ml.bag @ 12 UNITS/KG/HR 7.762 mls/hr IV .Q24H [facility] Rx#: [id number] Oral 340 Other: Voiding Method Toilet Toilet Toilet # Voids 1 1 11/02/19 02:28 11/01/19 11:15
--- NOTE | 2019-11-02 10:17 | ECHOF ---
Referral Reason:chest pain MEASUREMENTS -------- HEIGHT: 162.6 cm WEIGHT: 64.4 kg BP: 134/63 RVIDd: 3.2 cm (< 3.3) IVSd: 1.5 cm (0.6 - 1.1) LVIDd: 3.5 cm (3.9 - 5.3) LVPWd: 1.4 cm (0.6 - 1.1) IVSs: 1.7 cm LVIDs: 2.4 cm LVPWs: 1.5 cm LAESV Index (A-L): 29.30 ml/m Ao Diam: 2.3 cm (2.0 - 3.7) AV Cusp: 1.6 cm (1.5 - 2.6) MV EXCURSION: 20.180 mm (> 18.000) MV EF SLOPE: 84 mm/s (70 - 150) EPSS: 0.4 cm MV E Antwan: 0.56 m/s MV DecT: 232 ms MV A Antwan: 0.96 m/s MV E/A Ratio: 0.59 RAP: 5.00 mmHg RVSP: 26.63 mmHg FINDINGS -------- This was a technically adequate study. The left ventricular size is normal. There is moderate concentric left ventricular hypertrophy. O verall left ventricular systolic function is normal with, an EF between 55 - 60 %. The diastolic fi lling pattern is normal for the age of the patient {E/E'}. The right ventricle is normal in size. LA is midly dilated 29-33ml/m2. The right atrial size is normal. Interatrial and interventricular septum intact. The aortic valve is trileaflet and appears structurally normal. There is no evidence of aortic regu rgitation. There is no evidence of aortic stenosis. Mild mitral annular calcification present. Mild mitral regurgitation is present. Mild tricuspid regurgitation present. There is no evidence of pulmonary hypertension. The right v entricular systolic pressure, as measured by Doppler, is 26.63mmHg. There is no pulmonic regurgitation present. The aortic root size is normal. Normal inferior vena cava with normal inspiratory collapse consistent with estimated right atrial pre ssure of 5 mmHg. There is no pericardial effusion. CONCLUSIONS -------- 1. The left ventricular size is normal. 2. There is moderate concentric left ventricular hypertrophy. 3. Overall left ventricular systolic function is normal with, an EF between 55 - 60 %. 4. The diastolic filling pattern is normal for the age of the patient {E/E'} 5. LA is midly dilated 29-33ml/m2. 6. Mild mitral annular calcification present. 7. Mild mitral regurgitation is present. 8. Mild tricuspid regurgitation present. INSTRUMENT TECH: Rima Armijo RDCS
--- NOTE | 2019-11-02 16:26 | P.DS ---
Providers Date of admission: 11/01/19 12:37 Attending physician: Toya Cannon Consults: 11/01/19 12:32 Consult Physician Urgent Consulting Provider: Luis Amaya Consult Reason/Comments: chest pain Do you want consulting provider notified?: Yes Primary care physician: Kristina Zapata [facility] Course: patient came inwith complaints of her shortness of breath patient does have history of asthma and she believes that she may have asthma exacerbation patient has is having shortness of breath going on for about a week and getting worse progressively. On exam patient doesn't have any wheeze. Patient is also complaining of epigastric abdominal discomfort which is burning sensation did have an episode of nausea vomiting patient denied any lightheadedness denied any dysuria patient denied any palpitations or diaphoresis or this epigastric pain patient is admitted for rule out acute coronary syndromes. EKG did not show any acute ST-T wave changes. Patient was also having dry cough. 11/02/2019 Patient was a evaluated by cardiology ruled out acute medicine syndromes and not recommending any further intervention patient will be discharged today.patient will be discharged on 30 days of Protonix. Acid reflux may be contributing to some bronchospasm and asthma exacerbation and cough. PHYSICAL EXAMINATION: GENERAL: The patient is alert and oriented x3, not in any acute distress. Well developed, well nourished. HEENT: Pupils are round and equally reacting to light. EOMI. No scleral icterus. No conjunctival pallor. Normocephalic, atraumatic. No pharyngeal erythema. No thyromegaly. CARDIOVASCULAR: S1 and S2 present. No murmurs, rubs, or gallops. PULMONARY: Chest is clear to auscultation, no wheezing or crackles. ABDOMEN: Soft, nontender, nondistended, normoactive bowel sounds. No palpable organomegaly. MUSCULOSKELETAL: No joint swelling or deformity. EXTREMITIES: No cyanosis, clubbing, or pedal edema. NEUROLOGICAL: Gross neurological examination did not reveal any focal deficits. SKIN: No rashes. Assessment and Plan Plan: -Chest pain patient pain is mostly in the epigastric area possibly peptic ulcer disease or gastritis patient will be started on Protonix r -Shortness of breath patient may have mild asthma exacerbation will not require any systemic steroids patient will be started on inhaled steroids. -Hypertension -Mild to moderate dementia for which patient is on memantine and Aricept which will be continued Patient Condition at Discharge: Fair Plan - Discharge Summary New Discharge Prescriptions: Continue Fluticasone/Salmeterol [Advair 500-50 Diskus] 1 puff INHALATION RT-BID PRN PRN Reason: Shortness Of Breath miSOPROStoL [Cytotec] 100 mcg PO BID Magnesium Oxide [Mag-Ox] 400 mg PO HS L.acidoph,Paracasei, B.lactis [Probiotic] 1 cap PO DAILY Fexofenadine HCl [Shoshana Allergy] 180 mg PO DAILY Ascorbic Acid [Vitamin C] 500 mg PO TID Prevagen 1 tab PO HS Melatonin (Unknown Dose) 1 tab PO HS Ginkgo Biloba [place] Extract [Ginkgo] 120 mg PO BID Valsartan [Diovan] 80 mg PO DAILY Memantine HCl 10 mg PO BID Donepezil HCl [Aricept] 10 mg PO HS Citalopram Hydrobromide [Citalopram HBr] 10 mg PO HS Gabapentin [Neurontin] 100 mg PO TID Discharge Medication List Fluticasone/Salmeterol [Advair 500-50 Diskus] 1 puff INHALATION RT-BID PRN 11/19/16 [History] Ascorbic Acid [Vitamin C] 500 mg PO TID 11/01/19 [History] Citalopram Hydrobromide [Citalopram HBr] 10 mg PO HS 11/01/19 [History] Donepezil HCl [Aricept] 10 mg PO HS 11/01/19 [History] Fexofenadine HCl [Shoshana Allergy] 180 mg PO DAILY 11/01/19 [History] Gabapentin [Neurontin] 100 mg PO TID 11/01/19 [History] Ginkgo Biloba [place] Extract [Ginkgo] 120 mg PO BID 11/01/19 [History] L.acidoph,Paracasei, B.lactis [Probiotic] 1 cap PO DAILY 11/01/19 [History] Magnesium Oxide [Mag-Ox] 400 mg PO HS 11/01/19 [History] Melatonin (Unknown Dose) 1 tab PO HS 11/01/19 [History] Memantine HCl 10 mg PO BID 11/01/19 [History] Prevagen 1 tab PO HS 11/01/19 [History] Valsartan [Diovan] 80 mg PO DAILY 11/01/19 [History] miSOPROStoL [Cytotec] 100 mcg PO BID 11/01/19 [History] Follow up Appointment(s)/Referral(s): Kristina Zapata MD [Primary Care Provider] - 3 Days Discharge Disposition: HOME SELF-CARE
== END 2019-11-02 12:59 | disposition home or self-care (01) ==
LOC: EC 10:46 → 3NCARDOBS 12:37
PROVIDERS: ADMIT Internal Medicine; ATTEND Internal Medicine
DX: R10.13 Epigastric pain (principal); R07.89 Other chest pain; J45.909 Unspecified asthma, uncomplicated; R11.2 Nausea with vomiting, unspecified; R19.7 Diarrhea, unspecified; K21.9 Gastro-esophageal reflux disease without esophagitis; G43.909 Migraine, unspecified, not intractable, without status migrainosus; I10 Essential (primary) hypertension; R41.82 Altered mental status, unspecified; R41.3 Other amnesia; G30.9 Alzheimer's disease, unspecified; F02.80 Dementia in other diseases classified elsewhere, unspecified severity, without behavioral disturbance, psychotic disturbance, mood disturbance, and anxiety; Z79.899 Other long term (current) drug therapy; Z79.1 Long term (current) use of non-steroidal anti-inflammatories (NSAID); Z88.5 Allergy status to narcotic agent; Z88.2 Allergy status to sulfonamides; Z90.49 Acquired absence of other specified parts of digestive tract; Z87.891 Personal history of nicotine dependence
CPT/HCPCS: 93005 ×2; 96366 ×2; 96375; 96376 ×2; 96365; 99285; 36415; 94640 ×2; 93306; 85379; 83880; 80061; 80053; 83605; 83735; 84484; 85025; 85049; 85610; 85730 ×2; 71046; G0378 ×2; S0191 ×2; J1644 ×2; C9113 ×2

== ENCOUNTER → 2019-11-24 | Outpatient (CLI) | payer MEDICARE, OTHER ==
--- NOTE | 2019-11-27 08:49 | MM ---
Reason for exam: screening (asymptomatic). Last mammogram was performed 2 years ago. History: Patient is postmenopausal. Family history of breast cancer in paternal grandmother and breast cancer in maternal aunt. Reductions of both breasts, May 2007. Benign stereotactic core biopsy of the left breast, June 08, 2002. Benign excisional biopsy of the left breast, 2002. Benign core biopsy of the left breast. Took estrogen for 12 years 2 months beginning at age 46. Physical Findings: A clinical breast exam by your physician is recommended on an annual basis and results should be correlated with mammographic findings. MG 3D Screening Mammo W/Cad Bilateral CC and MLO view(s) were taken. Prior study comparison: November 26, 2017, bilateral MG 3d screening mammo w/cad. November 25, 2016, bilateral MG screening mammo w CAD. The breast tissue is heterogeneously dense. This may lower the sensitivity of mammography. Benign calcifications. No significant changes when compared with prior studies. ASSESSMENT: Benign, BI-RAD 2 RECOMMENDATION: Routine screening mammogram of both breasts in 1 year.
== END | disposition home or self-care (01) ==
LOC: RADMAMWWP 10:55
PROVIDERS: ATTEND Family Medicine
DX: Z12.31 Encounter for screening mammogram for malignant neoplasm of breast (principal)
CPT/HCPCS: 77063; 77067

== ENCOUNTER → 2020-08-21 | Outpatient (CLI) | payer MEDICARE, OTHER ==
--- NOTE | 2020-08-21 13:56 | CT ---
EXAMINATION TYPE: CT brain wo con DATE OF EXAM: 08/21/2020 COMPARISON: None INDICATION: Headache and hallucinations per patient spouse. History of alzheimers DLP: 1054.2 mGycm, Automated exposure control for dose reduction was used. CONTRAST: None CT of the brain is performed utilizing 3 mm thick sections through the posterior fossa and 3 mm thick sections through the remaining calvarium. Study is performed within 24 hours of arrival to the hosp [facility]. No abnormal hyperdensity is present to suggest an acute intracranial hemorrhage. No mass lesion is evident. No acute infarcts are evident. Minimal periventricular white matter hypodensity may be present which could reflect microvascular ischemic change. Ventricles and sulci are mildly prominent. for the patient age. Paranasal sinuses and mastoid air cells within the [id number] are clear. Hyperostosis frontalis internus is present, a normal variant. IMPRESSIONS: 1. Age-related atrophy
== END | disposition home or self-care (01) ==
LOC: RADCTMAIN 08:30
PROVIDERS: ATTEND Psychiatry & Neurology Neurology
DX: G30.9 Alzheimer's disease, unspecified (principal); F02.80 Dementia in other diseases classified elsewhere, unspecified severity, without behavioral disturbance, psychotic disturbance, mood disturbance, and anxiety
CPT/HCPCS: 70450

== ENCOUNTER → 2022-01-12 | Outpatient (CLI) | payer MEDICARE, OTHER ==
[2022-01-12 23:10] LABS: Appearance,Urine Clear (Clear); Bilirubin,Urine Negative (Negative); Blood,Urine Negative (Negative); Color,Urine Yellow (Yellow); Ketones,Urine Negative (Negative); Nitrite,Urine Negative (Negative); PH, Urine 6.5 (5.0-8.0); Specific Gravity,Urine 1.013 (1.001-1.030); Urobilinogen,Urine 0.2 (0.2,1.0)
[2022-01-12 23:51] LABS: Bacteria,Urine None Seen /HPF (None Seen); Calcium Oxalate Crystals,Urine Present /LPF (None Seen)
== END | disposition home or self-care (01) ==
LOC: LABWHC1 15:39
PROVIDERS: ATTEND Psychiatry & Neurology Neurology
DX: N39.0 Urinary tract infection, site not specified (principal); R41.82 Altered mental status, unspecified
CPT/HCPCS: 81001; 87086